=== PATIENT | male | born 1990 | race Caucasian/White ===

== ENCOUNTER 2018-01-21 22:44 | Emergency (ER) | payer MEDICAID, SELFPAY, OTHER ==
[2018-01-21] MEDS: NS 1,000 ML IV (23:45)
[2018-01-22] MEDS: ONDANSETRON 4MG/2ML VIAL (J2405) IV
[2018-01-22 00:17] LABS: BEDSIDE GLUCOSE 83 MG/DL (70-105)
[2018-01-22] MEDS: DEXTROSE 50% 50 ML SYRINGE IV (00:19)
[2018-01-22 00:36] LABS: BASO % 0.3 % (0.0-1.0); EOS % 0.3 % (0.0-3.0); HEMATOCRIT 44.1 % (42.0-52.0); HEMOGLOBIN 15.2 g/dl (13.5-17.5); IMMATURE GRANULOCYTE % 0.5 % (0-3.0); LYMPH # 0.8 10^3/uL (1.5-6.5); MEAN CORPUSCULAR HEMOGLOBIN 30.2 pg (27.0-33.0); MEAN CORPUSCULAR HGB CONC 34.5 g/dl (32.0-36.5); MEAN CORPUSCULAR VOLUME 87.7 fl (80.0-96.0); MONO # 0.5 10^3/uL (0.0-0.8); MONO % 3.8 % (0.0-5.0); NEUTROPHILS # 10.4 10^3/uL (1.8-7.7); NEUTROPHILS % 88.1 % (36.0-66.0); PLATELET COUNT, AUTOMATED 203 10^3/uL (150-450); RED BLOOD COUNT 5.03 10^6/uL (4.30-6.10); RED CELL DISTRIBUTION WIDTH 13.4 % (11.5-14.5); WHITE BLOOD COUNT 11.7 10^3/uL (4.0-10.0)
[2018-01-22 00:44] LABS: ALBUMIN/GLOBULIN RATIO 1.38 (1.00-1.93); ALKALINE PHOSPHATASE 79 U/L (45-117); ALT/SGPT 27 U/L (12-78); ANION GAP 9 MEQ/L (8-16); AST/SGOT 20 U/L (7-37); BILIRUBIN,DIRECT 0.2 MG/DL (0.0-0.2); BILIRUBIN,TOTAL 0.5 MG/DL (0.2-1.0); BLOOD UREA NITROGEN 18 MG/DL (7-18); CALCIUM LEVEL 8.8 MG/DL (8.5-10.1); CARBON DIOXIDE LEVEL 29 MEQ/L (21-32); CHLORIDE LEVEL 104 MEQ/L (98-107); CPK CREATINE PHOSPHOKINASE 161 U/L (39-308); CREATININE FOR GFR 1.17 MG/DL (0.70-1.30); GLOMERULAR FILTRATION RATE > 60.0 (>60); GLUCOSE, FASTING 80 MG/DL (70-100); SALICYLATE LEVEL 1.7 MG/DL (5.0-30.0); SODIUM LEVEL 142 MEQ/L (136-145); TOTAL PROTEIN 6.9 GM/DL (6.4-8.2); TROPONIN I 0.24 NG/ML (< 0.10)
[2018-01-22 00:50] LABS: ACETAMINOPHEN LEVEL < 2.0 UG/ML (10.0-30.0); CK-MB VALUE MASS 2.2 NG/ML (<3.6); ETHYL ALCOHOL (ETHANOL) < 0.003 % (0.000-0.010); MB/CK RELATIVE INDEX 1.36 (< OR =4)
[2018-01-22 02:10] LABS: AMPHETAMINES LEVEL URINE NEGATIVE (NEGATIVE); BARBITURATES URINE NEGATIVE (NEGATIVE); BENZODIAZEPINES URINE NEGATIVE (NEGATIVE); CANNABINOIDS URINE POSITIVE (NEGATIVE); COCAINE METABOLITE URINE NEGATIVE (NEGATIVE); METHADONE URINE NEGATIVE (NEGATIVE); OPIATES URINE POSITIVE (NEGATIVE); PHENCYCLIDINE URINE NEGATIVE (NEGATIVE)
[2018-01-22 06:24] LABS: CPK CREATINE PHOSPHOKINASE 133 U/L (39-308); TROPONIN I 0.32 NG/ML (< 0.10)
[2018-01-22 06:25] LABS: CK-MB VALUE MASS 2.3 NG/ML (<3.6); MB/CK RELATIVE INDEX 1.72 (< OR =4)
[2018-01-22] MEDS: ACETAMINOPHEN TAB 650MG DOSE (2X325MG) PO (09:42)
== END 2018-01-22 10:29 | disposition home or self-care (01) ==
LOC: M ED 22:44
DX: R45.851 Suicidal ideations (principal); T40.1X2A Poisoning by heroin, intentional self-harm, initial encounter; Y92.9 Unspecified place or not applicable; Y93.9 Activity, unspecified; Z91.5 Personal history of self-harm; F32.9 Major depressive disorder, single episode, unspecified; Z72.0 Tobacco use; F12.10 Cannabis abuse, uncomplicated; F11.10 Opioid abuse, uncomplicated; E73.9 Lactose intolerance, unspecified; Z88.6 Allergy status to analgesic agent; Z88.0 Allergy status to penicillin; Z88.1 Allergy status to other antibiotic agents; Z88.8 Allergy status to other drugs, medicaments and biological substances
CPT/HCPCS: J2405

== ENCOUNTER 2018-03-04 08:15 | Emergency (ER) | payer MEDICAID ==
[2018-03-04] MEDS: ACETAMINOPHEN 325 MG TAB PO (09:14)
== END 2018-03-04 09:35 | disposition home or self-care (01) ==
LOC: M ED 08:15
DX: S46.001A Unspecified injury of muscle(s) and tendon(s) of the rotator cuff of right shoulder, initial encounter (principal); X50.0XXA Overexertion from strenuous movement or load, initial encounter; Y92.098 Other place in other non-institutional residence as the place of occurrence of the external cause; F19.10 Other psychoactive substance abuse, uncomplicated; Z88.6 Allergy status to analgesic agent; Z88.8 Allergy status to other drugs, medicaments and biological substances; Z91.011 Allergy to milk products; Z88.0 Allergy status to penicillin; Z91.010 Allergy to peanuts
CPT/HCPCS: 73030

== ENCOUNTER 2018-10-28 04:29 | Emergency (ER) | payer OTHER ==
[~2018-10-28] VITALS: Ht 185.4 cm; Wt 111.4 kg
[~2018-10-28 04:29] MED LIST: CLIN150C14 PO; CYCL5TAB PO
[2018-10-28] MEDS ORDERED: BUPR75TA99 PO (04:39)
[2018-10-28] MEDS ORDERED: TRAZ150T90 PO (04:39)
[2018-10-28] MEDS ORDERED: CLON-412 PO (04:39)
[2018-10-28] MEDS ORDERED: ARIP1TAB PO (04:39)
[2018-10-28] MEDS ORDERED: CLEO300C2 PO (05:09)
[2018-10-28] MEDS ORDERED: KETOROLAC 60 MG/2 ML VIAL (J1885) IM ONE (05:15)
[2018-10-28 05:28] VITALS: BP 128/71
--- NOTE | 2018-10-28 07:54 | REP ---
Right foot: Two views. History: Foreign body evaluation. Findings: AP and lateral views of the right foot demonstrate normal bones, joints, and soft tissues. No opaque foreign body is seen. No fracture or soft tissue gas is seen. Impression: No abnormality noted. Electronically Signed by Olaf Latham MD 10/28/2018 07:45 A
== END 2018-10-28 05:31 | disposition home or self-care (01) ==
LOC: M ED 04:29
DX: M79.671 Pain in right foot (principal); F32.9 Major depressive disorder, single episode, unspecified; F11.10 Opioid abuse, uncomplicated; E73.9 Lactose intolerance, unspecified; Z72.0 Tobacco use; Z79.899 Other long term (current) drug therapy; Z88.0 Allergy status to penicillin
CPT/HCPCS: 73620; 96372; 99283; J1885

== ENCOUNTER 2019-07-30 09:28 | Emergency (ER) | payer OTHER ==
[~2019-07-30 09:28] MED LIST changes: +ARIP1TAB PO; +BUPR75TA99 PO; +CLEO300C2 PO; +CLON-412 PO; +TRAZ150T90 PO
[2019-07-30 09:41] VITALS: BP 200/111
[2019-07-30 10:09] LABS: BASO % 0.6 % (0.0-1.0); EOS # 0.2 10^3/uL (0.0-0.5); EOS % 5.2 % (0.0-3.0); HEMATOCRIT 42.9 % (42.0-52.0); LYMPH # 1.3 10^3/uL (1.5-5.0); LYMPH % 35.8 % (24.0-44.0); MEAN CORPUSCULAR HEMOGLOBIN 29.5 pg (27.0-33.0); MEAN CORPUSCULAR HGB CONC 32.6 g/dl (32.0-36.5); MEAN CORPUSCULAR VOLUME 90.5 fl (80.0-96.0); MONO # 0.4 10^3/uL (0.0-0.8); NEUTROPHILS # 1.7 10^3/uL (1.5-8.5); NEUTROPHILS % 47.1 % (36.0-66.0); PLATELET COUNT, AUTOMATED 177 10^3/uL (150-450); RED BLOOD COUNT 4.74 10^6/uL (4.30-6.10); WHITE BLOOD COUNT 3.6 10^3/uL (4.0-10.0)
[2019-07-30 10:44] LABS: ACETAMINOPHEN LEVEL < 2.0 UG/ML (10.0-30.0); ALBUMIN 4.2 GM/DL (3.2-5.2); ALT/SGPT 26 U/L (12-78); BILIRUBIN,DIRECT 0.2 MG/DL (0.0-0.2); BILIRUBIN,TOTAL 0.6 MG/DL (0.2-1.0); BLOOD UREA NITROGEN 15 MG/DL (7-18); CARBON DIOXIDE LEVEL 29 MEQ/L (21-32); CHLORIDE LEVEL 106 MEQ/L (98-107); CPK CREATINE PHOSPHOKINASE 226 U/L (39-308); CREATININE FOR GFR 0.98 MG/DL (0.70-1.30); ETHYL ALCOHOL (ETHANOL) < 0.003 % (0.000-0.010); GLOMERULAR FILTRATION RATE > 60.0 (>60); GLUCOSE, FASTING 79 MG/DL (70-100); POTASSIUM SERUM 3.7 MEQ/L (3.5-5.1); SALICYLATE LEVEL < 1.7 MG/DL (5.0-30.0); SODIUM LEVEL 142 MEQ/L (136-145); TOTAL PROTEIN 7.4 GM/DL (6.4-8.2)
--- NOTE | 2019-07-30 15:52 | ECGEPIP ---
[facility] - ED Test Date: 2019-07-30 Pat Name: MARYANN JANSEN Department: Room: - Gender: Male Tool [employer] Set Up Operator: : 1990 Requested By: KARRI Nelson Order Number: [id number] Reading MD: Ancelmo Verma Measurements Intervals [place] Rate: 80 P: 31 TN: 159 QRS: 26 QRSD: 90 T: 46 QT: 370 QTc: 428 Interpretive Statements SINUS RHYTHM INCOMPLETE RIGHT BUNDLE BRANCH BLOCK SIMILAR TO 01/21/18 Electronically Signed on 07-30-2019 15:52:39 EST by Ancelmo Verma
== END 2019-07-30 11:00 | disposition left against medical advice (07) ==
LOC: M ED 09:28 → EDBD 09:28 → M ED 11:00
DX: T40.1X1A Poisoning by heroin, accidental (unintentional), initial encounter (principal); F11.20 Opioid dependence, uncomplicated; F17.200 Nicotine dependence, unspecified, uncomplicated; I45.10 Unspecified right bundle-branch block; R94.31 Abnormal electrocardiogram [ECG] [EKG]; Z53.20 Procedure and treatment not carried out because of patient's decision for unspecified reasons; Z88.0 Allergy status to penicillin; Z91.011 Allergy to milk products
CPT/HCPCS: 36415; 80048; 80076; 82550; 84443; 85025; 93005; 93041; 94760; 99284; G0480

== ENCOUNTER 2020-05-10 23:35 | Emergency (ER) | payer OTHER ==
[~2020-05-10] VITALS: Ht 182.9 cm; Wt 100.0 kg
[2020-05-10] MEDS ORDERED: LORazepam 2 MG/ML VIAL IM STA (23:43)
[2020-05-10] MEDS ORDERED: LORazepam 2 MG/ML VIAL As Ordered ONE (23:44)
[2020-05-11] MEDS ORDERED: NS 1,000 ML IV ONE (00:30)
[2020-05-11] MEDS ORDERED: LORazepam 2 MG/ML VIAL IV STA (00:36)
[2020-05-11 00:44] LABS: HEMATOCRIT 43.8 % (42.0-52.0); HEMOGLOBIN 14.1 g/dl (13.5-17.5); MEAN CORPUSCULAR HEMOGLOBIN 28.5 pg (27.0-33.0); MEAN CORPUSCULAR HGB CONC 32.2 g/dl (32.0-36.5); MEAN CORPUSCULAR VOLUME 88.7 fl (80.0-96.0); PLATELET COUNT, AUTOMATED 244 10^3/uL (150-450); RED BLOOD COUNT 4.94 10^6/uL (4.30-6.10); WHITE BLOOD COUNT 10.9 10^3/uL (4.0-10.0)
[2020-05-11 01:05] LABS: ALBUMIN 4.1 GM/DL (3.2-5.2); ALT/SGPT 80 U/L (12-78); BILIRUBIN,DIRECT 0.2 MG/DL (0.0-0.2); BILIRUBIN,TOTAL 0.6 MG/DL (0.2-1.0); BLOOD UREA NITROGEN 20 MG/DL (7-18); CALCIUM LEVEL 9.3 MG/DL (8.5-10.1); CARBON DIOXIDE LEVEL 27 MEQ/L (21-32); CHLORIDE LEVEL 106 MEQ/L (98-107); CPK CREATINE PHOSPHOKINASE 1087 U/L (39-308); CREATININE FOR GFR 1.18 MG/DL (0.70-1.30); ETHYL ALCOHOL (ETHANOL) < 0.003 % (0.000-0.010); GLOMERULAR FILTRATION RATE > 60.0 (>60); GLUCOSE, FASTING 121 MG/DL (70-100); POTASSIUM SERUM 3.9 MEQ/L (3.5-5.1); SALICYLATE LEVEL < 1.7 MG/DL (5.0-30.0); SODIUM LEVEL 139 MEQ/L (136-145); TOTAL PROTEIN 7.9 GM/DL (6.4-8.2)
[2020-05-11 01:06] LABS: ACETAMINOPHEN LEVEL < 2.0 UG/ML (10.0-30.0)
[2020-05-11] MEDS ORDERED: NS 1,000 ML IV SCH (01:55)
[2020-05-11 05:50] LABS: AMPHETAMINES LEVEL URINE POSITIVE (NEGATIVE); BARBITURATES URINE NEGATIVE (NEGATIVE); BENZODIAZEPINES URINE NEGATIVE (NEGATIVE); CANNABINOIDS URINE POSITIVE (NEGATIVE); COCAINE METABOLITE URINE POSITIVE (NEGATIVE); METHADONE URINE NEGATIVE (NEGATIVE); OPIATES URINE POSITIVE (NEGATIVE); PHENCYCLIDINE URINE NEGATIVE (NEGATIVE)
[2020-05-11 13:15] VITALS: BP 141/89
== END 2020-05-11 13:59 | disposition home or self-care (01) ==
LOC: M ED 23:35
DX: F19.10 Other psychoactive substance abuse, uncomplicated (principal); F17.200 Nicotine dependence, unspecified, uncomplicated; Z88.0 Allergy status to penicillin; Z91.011 Allergy to milk products
CPT/HCPCS: 36415; 80048; 80076; 80307; 82550; 84443; 85027; 93041; 94760; 96360; 96361; 96372; 99285; G0480; J2060

== ENCOUNTER → 2020-06-22 | Outpatient (REF) ==
[2020-06-23 13:30] LABS: INFLUENZA A AMPLIFICATION NEGATIVE (NEGATIVE); INFLUENZA B AMPLIFICATION NEGATIVE (NEGATIVE)
== END ==
LOC: M LAB 20:45